=== PATIENT | male | born 1995 | race American Indian/Alaskan Native ===

== ENCOUNTER 2019-04-19 07:45 | Emergency (ER) | payer SELFPAY ==
[2019-04-19] MEDS ORDERED: KEPPRA 1,000 MG/NS 0.75% 100ML 1,000 MG/100 ML BAG IV ONE (09:00)
[2019-04-19 09:45] LABS: Basophils % (Auto) 0.5 % (0.0-1.8); Eosinophils % (Auto) 0.6 % (0.0-4.3); Hematocrit 42.3 % (35.5-45.6); Hemoglobin 14.4 gm/dl (11.8-15.2); Lymphocytes # (Auto) 1.3 K/mm3 (1.2-5.4); Lymphocytes % (Auto) 21.8 % (13.4-35.0); Mean Corpuscular HGB Conc 34 % (32-34); Mean Corpuscular Volume 93 fl (84-94); Monocytes # (Auto) 0.3 K/mm3 (0.0-0.8); Monocytes % (Auto) 5.2 % (0.0-7.3); Platelet Count 219 K/mm3 (140-440); Red Blood Count 4.54 M/mm3 (3.65-5.03); Red Cell Distribution Width 13.6 % (13.2-15.2)
[2019-04-19 10:02] LABS: BUN/Creatinine Ratio 16; Blood Urea Nitrogen 14 mg/dL (9-20); Calcium 8.5 mg/dL (8.4-10.2); Hemolysis Index 25
[2019-04-19 10:31] LABS: Amphetamine Screen,Urine PRESUMPTIVE NEGATIVE; Benzodiazepines Screen,Urine PRESUMPTIVE NEGATIVE; Cannabinoid Screen,Urine PRESUMPTIVE NEGATIVE; Cocaine Screen,Urine PRESUMPTIVE NEGATIVE; Methadone Screen,Urine PRESUMPTIVE NEGATIVE; Opiate Screen,Urine PRESUMPTIVE NEGATIVE
[2019-04-19 10:59] VITALS: BP 109/59
--- NOTE | 2019-04-19 11:12 | Emergency Department Report ---
ED General Adult HPI - General Chief complaint: Seizure Stated complaint: COLVULSIONS Time Seen by Provider: 04/19/19 08:42 Source: patient, EMS Mode of arrival: Stretcher Limitations: No Limitations - History of Present Illness Initial comments: 24-year-old male states he has been off his phenobarbital for seizures for approximately one week. He had a seizure this morning which apparently was generalized. He complains of swelling of his right lip. He states he did not bite his tongue. He has returned to his baseline and has no complaints. His f ather states he has been on phenobarbital for a long time. He is displaying no signs of withdrawal. He has not seen a neurologist in many years. -: Sudden Location: mouth Severity scale (0 -10): 0 Associated Symptoms: denies other symptoms - Related Data Previous Rx's Medication Instructions Recorded Last Taken Type levETIRAcetam [Keppra TAB] 500 mg PO BID #60 tablet 04/19/19 Unknown Rx Allergies Allergy/AdvReac Type Severity Reaction Status Date / Time No Known Allergies Allergy Unverified 04/19/19 08:09 ED Review of Systems ROS: Stated complaint: COLVULSIONS Other details as noted in HPI Constitutional: denies: chills, fever Eyes: denies: eye pain, eye discharge, vision change ENT: denies: ear pain, throat pain Respiratory: denies: cough, shortness of breath, wheezing Cardiovascular: denies: chest pain, palpitations Endocrine: no symptoms reported Gastrointestinal: denies: abdominal pain, nausea, diarrhea Genitourinary: denies: urgency, dysuria Musculoskeletal: denies: back pain, joint swelling, arthralgia Skin: denies: rash, lesions Neurological: as per HPI. denies: headache, weakness, paresthesias Psychiatric: denies: anxiety, depression Hematological/Lymphatic: denies: easy bleeding, easy bruising ED Past Medical Hx - Past Medical History Hx Seizures: Yes - Surgical History Past Surgical History?: No - Social History Smoking Status: Unknown if ever smoked Substance Use Type: None - Medications Home Medications: Home Medications Medication Instructions Recorded Confirmed Last Taken Type levETIRAcetam [Keppra TAB] 500 mg PO BID #60 tablet 04/19/19 Unknown Rx ED Physical Exam - General Limitations: No Limitations General appearance: alert, in no apparent distress - Head Head exam: Present: atraumatic, normocephalic - Eye Eye exam: Present: normal appearance - ENT ENT exam: Present: mucous membranes moist, other (soft tissue swelling right lower lip, tongue intact) - Neck Neck exam: Present: normal inspection. Absent: tenderness, meningismus - Respiratory Respiratory exam: Present: normal lung sounds bilaterally. Absent: respiratory distress - Cardiovascular Cardiovascular Exam: Present: regular rate, normal rhythm. Absent: systolic murmur, diastolic murmur, rubs, gallop - GI/Abdominal GI/Abdominal exam: Present: soft, normal bowel sounds. Absent: distended, tenderness, guarding, rebound, rigid - Rectal Rectal exam: Present: deferred - Extremities Exam Extremities exam: Present: normal inspection - Back Exam Back exam: Present: normal inspection - Neurological Exam Neurological exam: Present: alert, oriented X3, CN II-XII intact. Absent: motor sensory deficit - Psychiatric Psychiatric exam: Present: normal affect, normal mood - Skin Skin exam: Present: warm, dry, intact, normal color. Absent: rash ED Course Vital Signs 04/19/19 04/19/19 04/19/19 08:00 08:03 08:30 Temperature 98.1 F Pulse Rate 85 Respiratory 17 Rate Blood Pressure 122/78 121/81 O2 Sat by Pulse 100 99 99 Oximetry 04/19/19 04/19/19 04/19/19 09:00 09:30 10:00 Temperature Pulse Rate Respiratory Rate Blood Pressure 124/83 117/69 112/68 O2 Sat by Pulse 100 100 100 Oximetry 04/19/19 10:30 Temperature Pulse Rate 67 Respiratory 16 Rate Blood Pressure 109/59 O2 Sat by Pulse 100 Oximetry - Reevaluation(s) Reevaluation #1: No further problems or issues. 04/19/19 11:18 ED Medical Decision Making - Lab Data Result diagrams: 04/19/19 09:20 04/19/19 09:20 Laboratory Results - last 24 hr 04/19/19 04/19/19 04/19/19 09:20 09:20 09:50 WBC 6.0 RBC 4.54 Hgb 14.4 Hct 42.3 MCV 93 MCH 32 MCHC 34 RDW 13.6 Plt Count 219 Lymph % (Auto) 21.8 [place] % (Auto) 5.2 Eos % (Auto) 0.6 Baso % (Auto) 0.5 Lymph # 1.3 [place] # 0.3 Eos # 0.0 Baso # 0.0 Seg Neutrophils % 71.9 H Seg Neutrophils # 4.3 Sodium 137 Potassium 4.7 Chloride 101.3 Carbon Dioxide 24 Anion Gap 16 BUN 14 Creatinine 0.9 Estimated GFR > 60 BUN/Creatinine Ratio 16 Glucose 112 H Calcium 8.5 Urine Opiates Screen Presumptive negative Urine Methadone Screen Presumptive negative Ur Phencyclidine Scrn Presumptive negative Ur Amphetamines Screen Presumptive negative U Benzodiazepines Scrn Presumptive negative Urine Cocaine Screen Presumptive negative U Marijuana (THC) Screen Presumptive negative Critical care attestation.: If time is entered above; I have spent that time in minutes in the direct care of this critically ill patient, excluding procedure time. ED Disposition Clinical Impression: Generalized seizure, Seizure disorder Disposition: TO HOME OR SELFCARE Is pt being admited?: No Does the pt Need Aspirin: No Condition: Stable Instructions: Epilepsy (ED) Prescriptions: levETIRAcetam [Keppra TAB] 500 mg PO BID #60 tablet [facility] [Primary Care Provider] - 3-5 Days JOE ARNETT MD [Staff Physician] - 3-5 Days Time of Disposition: 11:10
== END 2019-04-19 11:44 | disposition home or self-care (01) ==
LOC: ED 07:45
DX: G43.909 Migraine, unspecified, not intractable, without status migrainosus (principal)
CPT/HCPCS: 36415; 80048; 80307; 85025; 96365; 99284; J1953

== ENCOUNTER 2022-07-22 18:19 | Emergency (ER) | payer OTHER ==
[2022-07-22] MEDS ORDERED: levETIRAcetam 1000 MG/NS 0.75% 1,000 MG/100 ML BAG IV ONE (20:31)
--- NOTE | 2022-07-22 20:32 | Emergency Department Report ---
ED General Adult HPI - General Chief complaint: Seizure Stated complaint: SEIZURE Time Seen by Provider: 07/22/22 20:24 Source: patient, EMS ( EMS documentation not available at time of chart dictation ), RN notes reviewed, old records reviewed Mode of arrival: Stretcher Limitations: No Limitations - History of Present Illness Initial comments: The patient was evaluated in the emergency department for symptoms described in the history of present illness. He/she was evaluated in the context of the global COVID-19 pandemic, which necessitated consideration that the patient might be at risk for infection with the virus that causes COVID-19. Institu tional protocols and algorithms that pertain to the evaluation of patients at risk for COVID-19 are in a state of rapid change based on information released by regulatory bodies including the CDC and federal and state organizations. These policies and algorithms were followed during the patient's care in the emergency department. Please note that these policies, procedures and recommendations changed on a rapid basis. This is a 27-year-old male with a past medical history of seizure disorder. He was diagnosed at the age of 14 or 15. He was previously maintained on phenobarbital, then switched to Keppra. He discontinued his Keppra in 2019 or 2020. He has not had a seizure in a few years. He reports that he was in his usual state of health today, where he believes he had a seizure. He currently denies physical pain. He denies headache, neck pain, chest pain, abdominal pain, shortness of breath, urinary symptoms. He denies recreational drug use. He feels like he is at his baseline. He was previously following with the [facility]. -: Sudden Severity scale (0 -10): 0 Consistency: now resolved Improves with: none Worsens with: none Associated Symptoms: denies other symptoms - Related Data Previous Rx's Medication Instructions Recorded Last Taken Type levETIRAcetam [Keppra TAB] 500 mg PO BID #60 tablet 07/22/22 Unknown Rx Allergies Allergy/AdvReac Type Severity Reaction Status Date / Time No Known Allergies Allergy Unverified 04/19/19 08:09 ED Review of Systems ROS: Stated complaint: SEIZURE Other details as noted in HPI Comment: All other systems reviewed and negative ED Past Medical Hx - Past Medical History Hx Seizures: Yes - Social History Smoking Status: Never Smoker Substance Use Type: None - Medications Home Medications: Home Medications Medication Instructions Recorded Confirmed Last Taken Type levETIRAcetam [Keppra TAB] 500 mg PO BID #60 tablet 07/22/22 Unknown Rx ED Physical Exam - General Limitations: No Limitations General appearance: alert, in no apparent distress - Head Head exam: Present: atraumatic, normocephalic - Eye Eye exam: Present: normal appearance, EOMI. Absent: nystagmus - ENT ENT exam: Present: normal exam, normal orophraynx, mucous membranes moist, normal external ear exam - Neck Neck exam: Present: normal inspection, full ROM. Absent: tenderness, meningismus - Respiratory Respiratory exam: Present: normal lung sounds bilaterally. Absent: respiratory distress, wheezes, rales, rhonchi, stridor, decreased breath sounds - Cardiovascular Cardiovascular Exam: Present: regular rate, normal rhythm, normal heart sounds. Absent: bradycardia, tachycardia, irregular rhythm, systolic murmur, diastolic murmur, rubs, gallop - GI/Abdominal GI/Abdominal exam: Present: soft. Absent: distended, tenderness, guarding, rebound, rigid, pulsatile mass - Rectal Rectal exam: Present: deferred - Extremities Exam Extremities exam: Present: normal inspection, full ROM, normal capillary refill, other (2+ pulses noted in the bilateral upper and lower extremities. There is no palpable cord. negative Homans sign. Muscular compartments are soft. The pelvis is stable.). Absent: pedal edema, calf tenderness - Back Exam Back exam: Present: normal inspection, full ROM. Absent: tenderness, CVA tenderness (R), CVA tenderness (L), paraspinal tenderness, vertebral tenderness - Neurological Exam Neurological exam: Present: alert, oriented X3, normal gait, other (No facial droop. Tongue midline. Extraocular movements intact bilaterally. Facial sensation intact to light touch in V1, V2, V3 distribution bilaterally. 5 and a 5 strength in 4 extremities. Sensation intact to light touch in 4 extremities.). Absent: motor sensory deficit - Psychiatric Psychiatric exam: Present: normal affect, normal mood - Skin Skin exam: Present: warm, dry, intact, normal color. Absent: rash ED Course Vital Signs 07/22/22 07/22/22 18:33 21:38 Temperature 98.1 F Pulse Rate 90 Respiratory 18 Rate Blood Pressure 117/67 [Left] O2 Sat by Pulse 98 Oximetry O2 Sat by Pulse 100 Oximetry [ Digit-Finger] - Reevaluation(s) Reevaluation #1: 07/22/22 21:35 Differential diagnosis, including but not limited to: Seizure, electrolyte derangement, noncompliance Assessment and plan: 27-year-old gentleman, who is pleasant, calm and cooperative, with a GCS of 15, who is clinically sober, patient is clinically sober at this time. The cervical spine is cleared through nexus and fijian c spine rule He has a history of seizure, and is not currently on AED medication. 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 He is advised to not drive or operate motor vehicles for the next 6 months. He will be loaded with Keppra. He will be discharged with Keppra. He is observed in this department for hours without clinical decompensation. His laboratory studies are essentially nonactionable. On final reassessment, patient resting comfortably in stretcher, in no acute distress, and endorses reliability for discharge, medication compliance, and follow-up. Return precautions are reviewed. All questions answered - Pulse Oximetry Interpretation Digit-Finger Initial Pulse Oximetry Readin O2 Sat by Pulse Oximetry: 100 Actions Taken: none ED Medical Decision Making - Lab Data Result diagrams: 07/22/22 20:39 07/22/22 20:39 Vital Signs 07/22/22 18:33 Temperature 98.1 F Pulse Rate 90 Respiratory 18 Rate Blood Pressure 117/67 [Left] O2 Sat by Pulse 98 Oximetry Lab Results 07/22/22 07/22/22 07/22/22 Range/Units 20:39 20:39 20:39 Hgb 15.3 H (11.8-15.2) gm/dl Hct 45.6 (35.5-45.6) % Plt Count 226 (140-440) K/mm3 Sodium 139 (137-145) mmol/L Potassium 4.3 (3.6-5.0) mmol/L Chloride 101.0 (98-107) mmol/L Carbon Dioxide 23 (22-30) mmol/L Anion Gap 19 mmol/L BUN 12 (9-20) mg/dL Creatinine 1.1 (0.8-1.3) mg/dL Estimated GFR > 60 ml/min BUN/Creatinine Ratio 11 % Glucose 91 (75-100) mg/dL Calcium 10.0 (8.4-10.2) mg/dL Magnesium 2.30 (1.7-2.3) mg/dL Total Creatine Kinase 234 H (55-170) units/L Acetaminophen 5.0 L (10.0-30.0) ug/mL - EKG Data -: EKG Interpreted by Me EKG shows normal: sinus rhythm Rate: normal - EKG Data When compared to previous EKG there are: previous EKG unavailable 07/22/22 21:35 There is no prior EKG available for comparison. The EKG is interpreted at 20: 33 This is a sinus rhythm, with a rate of 77 bpm. There is a rightward axis deviation. There is normal P wave axis. There is high left ventricular voltage. There is motion artifact. The intervals are within normal limits. This is an abnormal EKG. This is not a STEMI Critical care attestation.: If time is entered above; I have spent that time in minutes in the direct care of this critically ill patient, excluding procedure time. ED Disposition Clinical Impression: History of seizure Disposition: HOME / SELF CARE / HOMELESS Is pt being admited?: No Does the pt Need Aspirin: No Condition: Good Instructions: Seizure, Adult Additional Instructions: Please take your seizure medication as prescribed. Noncompliance with seizure medications may result in breakthrough seizure. Breakthrough seizure in turn may cause , disability, paralysis, loss of quality of life. Do not drive or operate motor vehicles for the next 6 months, or until cleared to do so. Avoid consumption of alcohol, tobacco, smoke products. Please follow-up with a primary care doctor or neurologist within the next week. Please take the Keppra prescription as directed. Please return to the emergency room right away with new pain, worsened pain, migration of pain, projectile vomiting, change in mental status, confusion, inability tolerate liquid feeds, new, worsened or different symptoms not present on the initial emergency room evaluation Prescriptions: levETIRAcetam [Keppra TAB] 500 mg PO BID #60 tablet Referrals: GONZALO CARTER MD [Staff Physician] - 3-5 Days PAM NARVAEZ MD [Staff Physician] - 3-5 Days [facility] [Provider Group] - 3-5 Days Forms: Work/School Release Form(ED)
[2022-07-22 21:07] LABS: Hematocrit 45.6 % (35.5-45.6); Hemoglobin 15.3 gm/dl (11.8-15.2)
[2022-07-22 21:32] LABS: BUN/Creatinine Ratio 11; Blood Urea Nitrogen 12 mg/dL (9-20); Hemolysis Index 15
[2022-07-22 22:42] VITALS: BP 118/88
--- NOTE | 2022-07-25 09:50 | Electrocardiograph Report ---
[facility] Test Date: 2022-07-22 Test Time: 20:33:23 Pat Name: TACO SHIELDS Department: Room: Gender: M Hearing Aid Technician: RAMESH : 1995 Requested By: PARVIN LOPEZ Order Number: [id number] Reading MD: Fernando Martinez Measurements Intervals [place] Rate: 77 P: 75 MA: 194 QRS: 114 QRSD: 94 T: 58 QT: 361 QTc: 409 Interpretive Statements Sinus rhythm Right axis deviation lpfb nonspecific st-t No previous ECG available for comparison Electronically Signed On 07-25-2022 9:50:47 EDT by Fernando Martinez
--- NOTE | 2022-07-25 09:51 | Electrocardiograph Report ---
[facility] Test Date: 2022-07-22 Test Time: 20:39:33 Pat Name: TACO SHIELDS Department: Room: Gender: M Qa Specialist: DOROTHY : 1995 Requested By: PARVIN LOPEZ Order Number: [id number] Reading MD: Fernando Martinez Measurements Intervals [place] Rate: 77 P: 57 LA: 200 QRS: 118 QRSD: 90 T: 50 QT: 364 QTc: 413 Interpretive Statements Sinus rhythm Right axis deviation lpfb s Compared to ECG 07/22/2022 20:33:23 No significant changes Electronically Signed On 07-25-2022 9:51:02 EDT by Fernando Martinez
== END 2022-07-22 22:44 | disposition home or self-care (01) ==
LOC: ED 18:19
DX: G40.909 Epilepsy, unspecified, not intractable, without status epilepticus (principal)
CPT/HCPCS: 36415; 80048; 82550; 83735; 85014; 85018; 85049; 93005; 96365; 99284; J1953; 80320; 96366; G0480